=== PATIENT | female | born 1975 ===

== ENCOUNTER → 2022-08-13 | Outpatient (CLI) | payer SELFPAY ==
[~2022-08-13] MED LIST: CEPH500 PO; IBUP800 PO
== END | disposition home or self-care (01) ==
LOC: LAB SHORT 09:00 → LAB 09:00
DX: Z11.59 Encounter for screening for other viral diseases (principal)
CPT/HCPCS: 86317; 86735; 86762; 86765; 86787

== ENCOUNTER → 2024-11-16 | Outpatient (CLI) | payer SELFPAY ==
[2024-11-16 18:03] LABS: Creatinine, Urine Random 25.70 mg/dL (27.00-270.00)
[2024-11-16 18:08] LABS: Microalb/Creat Ratio UR, Rand Unable to Calculate mg/g (0.000-30.000); Microalbumin, Random Urine <5.000 mg/L (0.000-20.000)
== END ==
LOC: LAB SHORT 11:47 → LAB 11:47
PROVIDERS: Student in an Organized Health Care Education/Training Program
DX: E11.65 Type 2 diabetes mellitus with hyperglycemia (principal)
CPT/HCPCS: 82043; 82570